=== PATIENT | male | born 1970 | race Caucasian/White ===

== ENCOUNTER 2018-04-05 01:35 | Emergency (ER) | payer MEDICAID ==
[~2018-04-05] VITALS: Ht 165.1 cm; Wt 104.3 kg
[2018-04-05 01:48] VITALS: BP 149/102
[2018-04-05] MEDS: IBUPROFEN 600 MG TAB PO ONE (01:58)
[2018-04-05] MEDS: BACLOFEN 10 MG TAB PO ONE (05:16)
[2018-04-05] MEDS: predniSONE 20 MG TAB PO ONE (05:16)
== END 2018-04-05 05:06 | disposition home or self-care (01) ==
LOC: ER 01:38
DX: M17.0 Bilateral primary osteoarthritis of knee (principal); I10 Essential (primary) hypertension; F17.210 Nicotine dependence, cigarettes, uncomplicated; F12.10 Cannabis abuse, uncomplicated; Z88.6 Allergy status to analgesic agent; X58.XXXA Exposure to other specified factors, initial encounter; Y93.89 Activity, other specified; Y92.89 Other specified places as the place of occurrence of the external cause; Y99.8 Other external cause status
CPT/HCPCS: 73562; 99284; J7030; J7512

== ENCOUNTER 2018-11-15 14:18 | Emergency (ER) | payer MEDICAID ==
[~2018-11-15] VITALS: Ht 170.2 cm; Wt 72.6 kg
[2018-11-15 14:44] VITALS: BP 143/90
== END 2018-11-15 22:42 | disposition left against medical advice (07) ==
LOC: EDUNIT# 14:18 → EDBD 14:18 → ER 14:23
DX: R10.31 Right lower quadrant pain (principal); F10.10 Alcohol abuse, uncomplicated; Z53.21 Procedure and treatment not carried out due to patient leaving prior to being seen by health care provider

== ENCOUNTER 2019-01-05 13:18 | Emergency (ER) | payer MEDICAID, OTHER ==
[~2019-01-05] VITALS: Ht 165.1 cm; Wt 68.0 kg
[2019-01-05] MEDS ORDERED: SODIUM CHLORIDE 0.9% 500 ML IVB ONE (13:28)
[2019-01-05] MEDS ORDERED: ONDANSETRON HCL 4 MG/2 ML VIAL IV ONE ×2 (13:30→15:15)
[2019-01-05] MEDS ORDERED: KETOROLAC TROMETH 15 mg/ml 1ML VL IV ONE (13:30)
[2019-01-05 14:19] LABS: Basophils # (auto) 0.1 uL; Basophils % (auto) 0.9 % (0.0-2.0); Eosinophils # (auto) 0.1 uL; Eosinophils % (auto) 0.6 % (0.0-7.0); Hemoglobin 13.7 g/dL (13.5-17.5); Lymphocytes # (auto) 1.7 uL; Lymphocytes % (auto) 11.3 % (10.0-50.0); Mean Corpuscular Hemoglobin 31.7 pg (28.0-32.0); Mean Corpuscular Hgb Conc. 33.6 g/dL (32.0-36.0); Mean Corpuscular Volume 94.6 fL (80.0-100.0); Monocytes # (auto) 0.7 uL; Monocytes % (auto) 4.9 % (0.0-12.0); Neutrophils # (auto) 12.5 uL; Neutrophils % (auto) 82.3 % (37.0-80.0); Platelet Count (auto) 336 10^3/uL (140-450); Red Blood Cells 4.33 10^6/uL (4.5-5.90); Red Cell Distribution Width 13.5 % (11.8-14.3); White Blood Cell 15.2 10^3/uL (4.4-10.8)
[2019-01-05 14:52] LABS: Potassium 3.8 mmol/L (3.5-5.1)
[2019-01-05 14:59] LABS: Albumin 3.1 g/dL (3.4-5.0); BUN/Creatinine Ratio 15.7; Bilirubin, Total 0.4 mg/dL (0.2-1.0); Calcium 8.1 mg/dL (8.5-10.1); Total Protein 6.4 g/dL (6.4-8.2)
[2019-01-05 15:07] LABS: INR < 0.93 (0.9-1.15); Partial Thromboplastin Time 25.9 sec (23.64-32.05)
[2019-01-05] MEDS ORDERED: MORPHINE SULFATE 4 MG/ML SYR/VIAL IV ONE (15:15)
[2019-01-05 16:45] VITALS: BP 115/71
== END 2019-01-05 16:56 | disposition short-term general hospital (02) ==
LOC: EDBD 13:18 → ER 13:24 → EDBD 13:24 → MERGE 13:24 → ER 16:56
DX: S22.32XA Fracture of one rib, left side, initial encounter for closed fracture (principal); S36.039A Unspecified laceration of spleen, initial encounter; R10.12 Left upper quadrant pain; I10 Essential (primary) hypertension; F17.210 Nicotine dependence, cigarettes, uncomplicated; Z59.0 Homelessness; Y08.89XA Assault by other specified means, initial encounter; Y93.89 Activity, other specified; Y92.89 Other specified places as the place of occurrence of the external cause; Y99.8 Other external cause status
CPT/HCPCS: 36415; 74176; 80053; 82150; 83690; 85025; 85610; 85730; 94761; 96374; 96375; 96376; 99285; J1885; J2270; J2405; J7030

== ENCOUNTER 2019-03-26 20:21 | Emergency (ER) | payer MEDICAID ==
[~2019-03-26] VITALS: Ht 172.7 cm; Wt 77.1 kg
[2019-03-26 20:45] VITALS: BP 127/84
== END 2019-03-27 00:47 | disposition left against medical advice (07) ==
LOC: EDBD 20:21 → ER 20:26
DX: R10.32 Left lower quadrant pain (principal); Z53.21 Procedure and treatment not carried out due to patient leaving prior to being seen by health care provider

== ENCOUNTER 2019-06-02 20:00 | Emergency (ER) | payer MEDICAID ==
[~2019-06-02] VITALS: Ht 177.8 cm; Wt 69.9 kg
[2019-06-03 00:14] VITALS: BP 119/84
[2019-06-03] MEDS ORDERED: IBUPROFEN 800 MG TAB PO ONE (01:15)
[2019-06-03] MEDS ORDERED: ACETAMINOPHEN 500 MG TAB PO ONE (01:15)
== END 2019-06-03 07:06 | disposition home or self-care (01) ==
LOC: EDBD 20:00 → ER 20:00
DX: S20.212A Contusion of left front wall of thorax, initial encounter (principal); S00.431A Contusion of right ear, initial encounter; S00.212A Abrasion of left eyelid and periocular area, initial encounter; I10 Essential (primary) hypertension; K40.90 Unilateral inguinal hernia, without obstruction or gangrene, not specified as recurrent; J31.0 Chronic rhinitis; F17.210 Nicotine dependence, cigarettes, uncomplicated; Z48.02 Encounter for removal of sutures; Z76.0 Encounter for issue of repeat prescription; Z88.6 Allergy status to analgesic agent; W01.0XXA Fall on same level from slipping, tripping and stumbling without subsequent striking against object, initial encounter; Y93.01 Activity, walking, marching and hiking; Y92.89 Other specified places as the place of occurrence of the external cause; Y99.8 Other external cause status
CPT/HCPCS: 71101

== ENCOUNTER 2019-07-14 11:07 | Emergency (ER) | payer MEDICAID ==
[~2019-07-14] VITALS: Ht 165.1 cm; Wt 77.1 kg
[2019-07-14] MEDS ORDERED: SODIUM CHLORIDE 0.9% 1,000 ML IV ONE ×2 (11:20)
[2019-07-14] MEDS ORDERED: ASPirin 81 mg TAB PO ONE (11:30)
[2019-07-14] MEDS ORDERED: NITROGLYCERIN 0.4 MG SL TAB SL ONE (11:30)
[2019-07-14 13:36] LABS: Basophils # (auto) 0.1 uL; Basophils % (auto) 0.7 % (0.0-2.0); Eosinophils # (auto) 0.2 uL; Eosinophils % (auto) 1.7 % (0.0-7.0); Hematocrit 43.1 % (41.0-53.0); Hemoglobin 14.7 g/dL (13.5-17.5); Lymphocytes # (auto) 1.1 uL; Lymphocytes % (auto) 8.5 % (10.0-50.0); Mean Corpuscular Hemoglobin 32.2 pg (28.0-32.0); Mean Corpuscular Volume 94.5 fL (80.0-100.0); Monocytes # (auto) 0.9 uL; Monocytes % (auto) 7.3 % (0.0-12.0); Neutrophils # (auto) 10.4 uL; Neutrophils % (auto) 81.8 % (37.0-80.0); Platelet Count (auto) 361 10^3/uL (140-450); Red Blood Cells 4.56 10^6/uL (4.5-5.90); Red Cell Distribution Width 13.6 % (11.8-14.3); White Blood Cell 12.7 10^3/uL (4.4-10.8)
[2019-07-14 14:01] LABS: Alanine Aminotransferase 33 U/L (16-61); Albumin 3.1 g/dL (3.4-5.0); Anion Gap 8 (5-15); Aspartate Aminotransferase 27 U/L (15-37); BUN/Creatinine Ratio 16.5; Blood Urea Nitrogen 15 mg/dL (7-18); Calcium 8.8 mg/dL (8.5-10.1); Carbon Dioxide 25 mmol/L (21-32); Chloride 107 mmol/L (98-107); GFR African American 113 mL/min; GFR Non-African American 94 mL/min; Glucose 114 mg/dL (74-106); Potassium 4.2 mmol/L (3.5-5.1); Sodium 140 mmol/L (136-145)
[2019-07-14 14:06] LABS: Alkaline Phosphatase 109 U/L (45-117); Bilirubin, Total 0.4 mg/dL (0.2-1.0); Total Protein 6.6 g/dL (6.4-8.2)
[2019-07-14 15:43] LABS: Urine WBC None Seen /hpf (0 - 3)
[2019-07-14 15:55] LABS: Urine Bacteria FEW /hpf (None Seen); Urine Blood Negative /uL (Negative); Urine Specific Gravity 1.018 (1.001-1.035)
[2019-07-14 16:08] LABS: Alcohol, Urine < 3.0 mg/dL (0-5); Amphetamine Screen, Urine POSITIVE (NEGATIVE); Barbiturate Scree,Urine NEGATIVE (NEGATIVE); Benzodiazephine Screen, Urine NEGATIVE (NEGATIVE); Cannabinoid Screen, Urine POSITIVE (NEGATIVE); Cocaine Screen, Urine NEGATIVE (NEGATIVE); Phencyclidine Screen, Urine NEGATIVE (NEGATIVE)
[2019-07-14 16:19] LABS: Opiate Scree,Urine NEGATIVE (NEGATIVE)
[2019-07-14 16:37] VITALS: BP 140/97
== END 2019-07-14 19:01 | disposition home or self-care (01) ==
LOC: ER 11:07 → EDUNIT# 11:07 → EDBD 11:07 → ER 11:34
DX: R07.89 Other chest pain (principal); E86.0 Dehydration; R51 Headache; I10 Essential (primary) hypertension; F17.210 Nicotine dependence, cigarettes, uncomplicated; Z88.5 Allergy status to narcotic agent
CPT/HCPCS: 36415; 71045; 80053; 80307; 80320; 81001; 83880; 84484; 85025

== ENCOUNTER 2019-07-30 18:28 | Emergency (ER) | payer MEDICAID ==
[~2019-07-30] VITALS: Ht 165.1 cm; Wt 72.6 kg
[2019-07-30 21:00] VITALS: BP 142/103
[2019-07-30] MEDS ORDERED: MORPHINE SULFATE 4 MG/ML SYR/VIAL IV ONE (21:00)
[2019-07-30] MEDS ORDERED: TETANUS-DIPTH-ACEL PERTUSSIS 0.5ML SYRG IM ONE (21:00)
[2019-07-30] MEDS ORDERED: SILVER SULFADIAZINE 1 % TOPICAL CREAM 50GM TOP ONE ×2 (21:00)
[2019-07-30] MEDS ORDERED: ONDANSETRON HCL 4 MG/2 ML VIAL IV ONE (21:00)
== END 2019-07-30 21:41 | disposition home or self-care (01) ==
LOC: ER 18:36
DX: T24.211A Burn of second degree of right thigh, initial encounter (principal); T24.202A Burn of second degree of unspecified site of left lower limb, except ankle and foot, initial encounter; T24.102A Burn of first degree of unspecified site of left lower limb, except ankle and foot, initial encounter; T31.11 Burns involving 10-19% of body surface with 10-19% third degree burns; F17.210 Nicotine dependence, cigarettes, uncomplicated; Z88.6 Allergy status to analgesic agent; X08.8XXA Exposure to other specified smoke, fire and flames, initial encounter; Y93.89 Activity, other specified; Y92.89 Other specified places as the place of occurrence of the external cause; Y99.8 Other external cause status
CPT/HCPCS: 16020; 90471; 90715; 96374; 96375; 99284; J2270; J2405

== ENCOUNTER 2019-07-31 11:45 | Emergency (ER) | payer MEDICAID ==
[~2019-07-31] VITALS: Ht 167.6 cm; Wt 72.6 kg
[2019-07-31] MEDS ORDERED: cefTRIAXone 1GM/50ML D5W 50 ML IV ONE (12:15)
[2019-07-31] MEDS ORDERED: MEPERIDINE HCL (25 MG/ML) 1ML VIAL IV ONE (12:15)
[2019-07-31] MEDS ORDERED: SODIUM CHLORIDE 0.9% 2,000 ML IV ONE (12:15)
[2019-07-31] MEDS ORDERED: PROMETHAZINE HCL 25 MG/ML 1ML IV ONE (12:15)
[2019-07-31 12:45] LABS: Basophils # (auto) 0.1 uL; Basophils % (auto) 0.4 % (0.0-2.0); Eosinophils # (auto) 0 uL; Eosinophils % (auto) 0.1 % (0.0-7.0); Hematocrit 45.3 % (41.0-53.0); Hemoglobin 15.1 g/dL (13.5-17.5); Lymphocytes # (auto) 1.4 uL; Lymphocytes % (auto) 5.9 % (10.0-50.0); Mean Corpuscular Hgb Conc. 33.3 g/dL (32.0-36.0); Mean Corpuscular Volume 96.1 fL (80.0-100.0); Monocytes # (auto) 1.5 uL; Monocytes % (auto) 6.2 % (0.0-12.0); Neutrophils # (auto) 20.7 uL; Neutrophils % (auto) 87.4 % (37.0-80.0); Platelet Count (auto) 357 10^3/uL (140-450); Red Blood Cells 4.71 10^6/uL (4.5-5.90); Red Cell Distribution Width 13.9 % (11.8-14.3); White Blood Cell 23.6 10^3/uL (4.4-10.8)
[2019-07-31 13:05] LABS: Albumin 2.9 g/dL (3.4-5.0); BUN/Creatinine Ratio 11.6; Calcium 7.8 mg/dL (8.5-10.1); Potassium 3.6 mmol/L (3.5-5.1)
[2019-07-31 13:07] LABS: Total Protein 6.6 g/dL (6.4-8.2)
[2019-07-31] MEDS ORDERED: SODIUM CHLORIDE 0.9% 1,000 ML IVB ONE (13:28)
[2019-07-31 14:10] LABS: INR 1.01 (0.9-1.15); Partial Thromboplastin Time 34.9 sec (23.64-32.05)
[2019-07-31] MEDS ORDERED: HYDROmorphone HCL 2 MG/ML VL IV ONE (15:45)
[2019-07-31] MEDS ORDERED: VANCOMYCIN 1GM/250ML 250 ML IV ONE (15:45)
[2019-07-31 17:01] VITALS: BP 158/95
[2019-07-31] MEDS ORDERED: NOREPINEPHRINE 8 MG/250ML KIT 0 ML IV ONE (17:54)
== END 2019-07-31 17:40 | disposition short-term general hospital (02) ==
LOC: EDBD 11:45 → ER 11:45
DX: A41.9 Sepsis, unspecified organism (principal); T24.301D Burn of third degree of unspecified site of right lower limb, except ankle and foot, subsequent encounter; T21.12XD Burn of first degree of abdominal wall, subsequent encounter; Z59.0 Homelessness; I10 Essential (primary) hypertension
CPT/HCPCS: 36415; 71045; 80053; 83605; 83735; 83880; 85025; 85610; 85730; 87040; 96365; 96367; 96375; 99291; J0696; J1170; J2175; J2550; J3370

== ENCOUNTER 2019-08-09 02:14 | Emergency (ER) | payer MEDICAID ==
[~2019-08-09] VITALS: Ht 165.1 cm; Wt 54.9 kg
[2019-08-09 02:36] VITALS: BP 158/106
[2019-08-09] MEDS ORDERED: cloNIDine HCL 0.1 MG TAB PO ONE (02:45)
== END 2019-08-09 07:17 | disposition left against medical advice (07) ==
LOC: ER 02:15
DX: T24.009 Burn of unspecified degree of unspecified site of unspecified lower limb, except ankle and foot (principal); Z76.0 Encounter for issue of repeat prescription; Z53.21 Procedure and treatment not carried out due to patient leaving prior to being seen by health care provider

== ENCOUNTER 2019-08-12 22:14 | Emergency (ER) | payer MEDICAID ==
[~2019-08-12] VITALS: Ht 165.1 cm; Wt 70.3 kg
[2019-08-12] MEDS ORDERED: SILVER SULFADIAZINE 1 % TOPICAL CREAM 50GM TOP ONE (22:45)
[2019-08-12] MEDS ORDERED: HYDROcodone-ACET 5/325MG TAB PO ONE (23:45)
[2019-08-13] MEDS ORDERED: HYDROmorphone HCL 2 MG/ML VL IM ONE
[2019-08-13] MEDS ORDERED: HYDROmorphone HCL 2 MG/ML VL ONE
[2019-08-13 00:20] VITALS: BP 122/68
== END 2019-08-13 02:24 | disposition left against medical advice (07) ==
LOC: EDBD 22:14 → ER 22:16
DX: T24.201A Burn of second degree of unspecified site of right lower limb, except ankle and foot, initial encounter (principal); T24.101A Burn of first degree of unspecified site of right lower limb, except ankle and foot, initial encounter; I10 Essential (primary) hypertension; F17.210 Nicotine dependence, cigarettes, uncomplicated; Z59.0 Homelessness; X08.8XXA Exposure to other specified smoke, fire and flames, initial encounter; Y93.89 Activity, other specified; Y92.89 Other specified places as the place of occurrence of the external cause; Y99.8 Other external cause status
CPT/HCPCS: 16000; 96372; 99284; J1170; J7030

== ENCOUNTER 2019-08-14 14:33 | Emergency (ER) | payer MEDICAID ==
[2019-08-14 15:14] VITALS: BP 150/67
== END 2019-08-14 15:38 ==
LOC: ER 14:33
DX: F10.129 Alcohol abuse with intoxication, unspecified (principal); I10 Essential (primary) hypertension; S86.911D Strain of unspecified muscle(s) and tendon(s) at lower leg level, right leg, subsequent encounter; F17.210 Nicotine dependence, cigarettes, uncomplicated; F12.10 Cannabis abuse, uncomplicated; Z59.0 Homelessness; X08.8XXD Exposure to other specified smoke, fire and flames, subsequent encounter

== ENCOUNTER 2019-08-15 16:46 | Emergency (ER) | payer MEDICAID ==
[~2019-08-15] VITALS: Ht 182.9 cm; Wt 90.7 kg
[2019-08-15 17:05] VITALS: BP 142/86
== END 2019-08-15 21:31 | disposition left against medical advice (07) ==
LOC: ER 16:46 → EDBD 16:46 → ER 21:31
DX: M79.604 Pain in right leg (principal); Z53.21 Procedure and treatment not carried out due to patient leaving prior to being seen by health care provider

== ENCOUNTER 2019-08-21 13:25 | Emergency (ER) | payer MEDICAID ==
[~2019-08-21] VITALS: Ht 165.1 cm; Wt 70.3 kg
[2019-08-21 13:30] VITALS: BP 170/104
== END 2019-08-21 16:59 | disposition left against medical advice (07) ==
LOC: EDBD 13:25 → ER 13:25
DX: S50.12XA Contusion of left forearm, initial encounter (principal); M79.604 Pain in right leg; X58.XXXA Exposure to other specified factors, initial encounter; Y93.89 Activity, other specified; Y92.89 Other specified places as the place of occurrence of the external cause; Y99.8 Other external cause status
CPT/HCPCS: 73090

== ENCOUNTER 2020-03-19 23:40 | Emergency (ER) | payer MEDICAID ==
[~2020-03-19] VITALS: Ht 165.1 cm; Wt 72.6 kg
[2020-03-20 00:22] VITALS: BP 139/91
== END 2020-03-20 02:55 | disposition home or self-care (01) ==
LOC: ER 23:41
DX: S50.12XA Contusion of left forearm, initial encounter (principal); I10 Essential (primary) hypertension; Y08.89XA Assault by other specified means, initial encounter; Y93.89 Activity, other specified; Y92.89 Other specified places as the place of occurrence of the external cause; Y99.8 Other external cause status
CPT/HCPCS: 73090

== ENCOUNTER 2021-08-29 01:34 | Emergency (ER) | payer MEDICAID ==
[~2021-08-29] VITALS: Ht 152.4 cm; Wt 72.6 kg
[2021-08-29 03:35] LABS: Lactic Acid w/Reflex 2.2 mmol/L (0.4-2.0)
[2021-08-29 04:01] LABS: Monocytes # (auto) 0.8 10 ^3/uL (0-1.3); Nucleated Red Blood Cells % 0.1 %; White Blood Cell 6.3 10^3/uL (4.4-10.8)
[2021-08-29 04:08] LABS: Basophils # (auto) 0.1 10 ^3/uL (0-0.2); Basophils % (auto) 1.3 % (0.0-2.0); Eosinophils # (auto) 0.4 10 ^3/uL (0-0.8); Eosinophils % (auto) 5.5 % (0.0-7.0); Hematocrit 37.8 % (41.0-53.0); Hemoglobin 12.7 g/dL (13.5-17.5); Lymphocytes # (auto) 1.5 10 ^3/uL (0.4-5.4); Lymphocytes % (auto) 23.7 % (10.0-50.0); Mean Corpuscular Hemoglobin 31.2 pg (28.0-32.0); Mean Corpuscular Hgb Conc. 33.7 g/dL (32.0-36.0); Mean Corpuscular Volume 92.5 fL (80.0-100.0); Monocytes % (auto) 12.2 % (0.0-12.0); Neutrophils # (auto) 3.6 10 ^3/uL (1.6-8.6); Neutrophils % (auto) 57.3 % (37.0-80.0); Red Blood Cells 4.08 10^6/uL (4.5-5.90); Red Cell Distribution Width 15.1 % (11.8-14.3)
[2021-08-29 05:29] LABS: Urine Bacteria NONE SEEN /hpf (None Seen); Urine Blood Negative /uL (Negative); Urine Mucus FEW (None Seen); Urine Specific Gravity 1.016 (1.001-1.035); Urine WBC <1 /hpf (0 - 3)
[2021-08-29] MEDS ORDERED: HYDROmorphone HCL 2 MG/ML VL IM ONE (06:30)
[2021-08-29] MEDS ORDERED: KETOROLAC TROMETH 30 MG/ML 1ML VIAL IV ONE (06:45)
[2021-08-29 07:51] LABS: Albumin 2.5 g/dL (3.4-5.0); BUN/Creatinine Ratio 13.7; Calcium 7.8 mg/dL (8.5-10.1); Potassium 3.8 mmol/L (3.5-5.1)
[2021-08-29 07:53] LABS: Bilirubin, Total 0.2 mg/dL (0.2-1.0); Total Protein 7.1 g/dL (6.4-8.2)
[2021-08-29] MEDS ORDERED: LIDOCAINE HCL 2% TOP JELLY 5ML TOP ONE ×2 (08:45→11:45)
[2021-08-29] MEDS ORDERED: LIDOCAINE 2% (LOCAL ANESTH.) PF 5ml SDV IJ ONE (08:45)
[2021-08-29] MEDS ORDERED: cefTRIAXone 1GM/50ML D5W 50 ML IV ONE ×2 (12:14→12:15)
[2021-08-29 12:22] VITALS: BP 152/99
== END 2021-08-29 13:00 | disposition home or self-care (01) ==
LOC: EDBD 01:34 → ER 01:48
DX: I10 Essential (primary) hypertension (principal); F12.10 Cannabis abuse, uncomplicated; L03.311 Cellulitis of abdominal wall; D75.839 Thrombocytosis, unspecified; E44.0 Moderate protein-calorie malnutrition; S31.119D Laceration without foreign body of abdominal wall, unspecified quadrant without penetration into peritoneal cavity, subsequent encounter; Z68.31 Body mass index [BMI] 31.0-31.9, adult; Z59.00 Homelessness unspecified; W18.39XA Other fall on same level, initial encounter; Y93.89 Activity, other specified; Y92.89 Other specified places as the place of occurrence of the external cause; Y99.8 Other external cause status
CPT/HCPCS: 36415; 80053; 81001; 83605; 85025; 87040; 93005; 96365; 96375; 99285; J0696; J1885; J7030; J2001

== ENCOUNTER 2022-03-12 02:13 | Emergency (ER) | payer MEDICAID ==
[~2022-03-12] VITALS: Ht 165.1 cm; Wt 86.0 kg
[2022-03-12] MEDS ORDERED: IBUPROFEN 800 MG TAB PO ONE (03:00)
[2022-03-12] MEDS ORDERED: IBUP800T26 PO (03:50)
[2022-03-12 04:00] VITALS: BP 136/86
== END 2022-03-12 04:15 | disposition left against medical advice (07) ==
LOC: ER 02:13
DX: S81.012A Laceration without foreign body, left knee, initial encounter (principal); I10 Essential (primary) hypertension; F12.10 Cannabis abuse, uncomplicated; Z59.00 Homelessness unspecified; W23.0XXA Caught, crushed, jammed, or pinched between moving objects, initial encounter; Y93.89 Activity, other specified; Y92.89 Other specified places as the place of occurrence of the external cause; Y99.8 Other external cause status
CPT/HCPCS: 12002

== ENCOUNTER 2022-06-14 23:34 | Emergency (ER) | payer MEDICAID ==
[~2022-06-14] VITALS: Ht 165.1 cm; Wt 72.7 kg
[~2022-06-14 23:34] MED LIST: IBUP800T26 PO
[2022-06-14 23:40] VITALS: BP 154/107
== END 2022-06-15 02:36 | disposition left against medical advice (07) ==
LOC: ER 23:34 → EDBD 23:34 → EDUNIT# 23:34 → ER 06-15 02:36
DX: R10.9 Unspecified abdominal pain (principal); R22.2 Localized swelling, mass and lump, trunk; L53.9 Erythematous condition, unspecified; Z53.21 Procedure and treatment not carried out due to patient leaving prior to being seen by health care provider

== ENCOUNTER 2024-02-18 05:18 | Emergency (ER) | payer MEDICAID ==
[~2024-02-18] VITALS: Ht 165.1 cm; Wt 70.2 kg
[~2024-02-18 05:18] MED LIST changes: +IBUP-1455 PO; -IBUP800T26 PO
[2024-02-18] MEDS ORDERED: DICL50TA2 PO (08:15)
[2024-02-18 09:00] VITALS: BP 155/99; PULSE 94; RESP 14; TEMP 98.4; O2SAT 100
== END 2024-02-18 09:17 | disposition home or self-care (01) ==
LOC: ER 05:24
DX: S02.2XXA Fracture of nasal bones, initial encounter for closed fracture (principal); S00.83XA Contusion of other part of head, initial encounter; K04.7 Periapical abscess without sinus; F12.10 Cannabis abuse, uncomplicated; I10 Essential (primary) hypertension; Z59.00 Homelessness unspecified; Y04.2XXA Assault by strike against or bumped into by another person, initial encounter; Y93.89 Activity, other specified; Y92.89 Other specified places as the place of occurrence of the external cause; Y99.8 Other external cause status
CPT/HCPCS: 70450; 70486; 72125